=== PATIENT | female | born 1985 | race Caucasian/White ===

== ENCOUNTER 2018-05-17 13:08 | Emergency (ER) | payer SELFPAY ==
[2018-05-17 13:18] VITALS: BP 137/94
--- NOTE | 2018-05-17 13:59 | ER Document Report ---
HPI - HPI Onset: Other - x 1 week Onset/Duration: Intermittent Severity: Moderate Pain Level: 1 Context: x 2 weeks. pt is a poor historian and unwilling to give details. just states that it hurts. will not offer if any otc meds tried. Associated Symptoms: Other - intermittent n/t in hands. no trauma. denies cp, sob, n/v/d, headaches, blurrred vision, double vision, st, neck pain, abd pain, weakness, dysuria, hematuria, lower back pain. Exacerbated by: Denies Relieved by: Denies Similar symptoms previously: No Recently seen / treated by doctor: No Notes: 32 yr old female presents for reports of numbness and tingling in her hands for approximately 1 week. Denies any trauma. Past Medical History - General Information source: Patient - Social History Smoking Status: Current Every Day Smoker - just smoked a cigarette prior to vitals. Family History: Reviewed & Not Pertinent Vertical Provider Document - CONSTITUTIONAL Agree With Documented VS: Yes Exam Limitations: Other - Patient was slurring her speech intermittently is Notes: NoPHYSICAL EXAMINATION: GENERAL: Well-appearing, well-nourished. Patient appeared to be under the influence of a substance due to slurring of words. agitated. unable to keep head elevated, kept closing her eyes HEAD: Atraumatic, normocephalic. EYES: Pupils equal round and reactive to light, extraocular movements intact, conjunctiva are normal. ENT: Nares patent, oropharynx clear without exudates. Moist mucous membranes. NECK: Normal range of motion, supple without lymphadenopathy LUNGS: Breath sounds clear to auscultation bilaterally and equal. No wheezes rales or rhonchi. HEART: Regular rate and rhythm without murmurs ABDOMEN: Soft, nontender, nondistended abdomen. No guarding, no rebound. No masses appreciated. Musculoskeletal: Normal range of motion, no pitting or edema. No cyanosis. noted wrist pain with flexion, extension, inversion, eversion of wrist. digits in right and left with full aprom. Prefinish Operator + 2 BUE equally. Snuffbox tenderness negative bilaterally. radial pulses + 2 BUE equally. Negative kanavels sign. No open wounds or drainage from wrist. No vascular compromise. No body crepitus or focal area of TTP. Full APROM with flexion, extension, ulnar/radial deviation . Motor and sensory function of ulnar, radial, medial nerves intact bilaterally and equally. unable to assess tinel's sign due to pt becoming upset and left room. NEUROLOGICAL: Cranial nerves grossly intact. Normal speech, normal gait. Normal sensory, motor exams. pt kept closing eyes. pupils 2mm, constricted, reactive equally with accommodation. PERRLA PSYCH: Normal mood, normal affect. SKIN: Warm, Dry, normal turgor, no rashes or lesions noted. - INFECTION CONTROL TRAVEL OUTSIDE OF THE [place] IN LAST 30 DAYS: No - CARDIOVASCULAR Pulses: Normal: Brachial, Radial Course - Re-evaluation Re-evalutation: 05/17/18 14:09 32-year-old female presents for evaluation of bilateral numbness and tingling of hands. after examination, Afebrile,pt slightly tachycardia, requested to repeat vitals, pt became upset and started swearing and said "what do you fucking want from me". advised pt that she cannot swear at the provider. While checking pulse ox, ,"get this stuff off me, get this fucking stuff off me." This RN removed the BP cuff and pulse oximetry from pt. Pt states,"it is worthless coming to the hospital. It is always fucking worthless. You are all fucking worthless" while the patient got up from the bed, grabbed her purse and jeans with bilateral hands without difficulty and ambulated to the lobby without difficulty. Pt has even unlabored breathing while ambulating to the lobby. Pt NAD. advised pt to get xrays. refused xrays. pt eloped without distress. - Vital Signs Vital signs: Temp Pulse Resp BP Pulse Ox 98.9 F 107 H 20 137/94 H 97 05/17/18 13:11 05/17/18 13:11 05/17/18 13:11 05/17/18 13:11 05/17/18 13:11 Discharge - Discharge Disposition: ELOPED
== END 2018-05-17 13:48 | disposition left against medical advice (07) ==
LOC: ER 13:08
DX: R20.0 Anesthesia of skin (principal); F17.210 Nicotine dependence, cigarettes, uncomplicated
CPT/HCPCS: 99281

== ENCOUNTER 2019-10-13 00:16 | Emergency (ER) | payer SELFPAY ==
[2019-10-13] MEDS ORDERED: IBUPROFEN 800 MG TABLET PO ONE (00:27)
[2019-10-13 00:37] VITALS: BP 150/109
--- NOTE | 2019-10-13 00:56 | ER Document Report ---
Doctor's Note Notes: 10/13/19 00:56 Patient left without being seen prior to my evaluation.
== END 2019-10-13 00:53 | disposition home or self-care (01) ==
LOC: ER 00:16
DX: Z53.21 Procedure and treatment not carried out due to patient leaving prior to being seen by health care provider (principal)